=== PATIENT | male | born 1950 | race Caucasian/White ===

== ENCOUNTER → 2017-01-09 | Outpatient (CLI) | payer OTHER, MEDICARE | LOC: BHFA 13:00 | PROVIDERS: ATTEND Internal Medicine Cardiovascular Disease | DX: R00.2 Palpitations (principal); R94.31 Abnormal electrocardiogram [ECG] [EKG]; I49.3 Ventricular premature depolarization; I10 Essential (primary) hypertension; I47.1 Supraventricular tachycardia; R42 Dizziness and giddiness; R06.02 Shortness of breath ==

== ENCOUNTER → 2017-01-23 | Outpatient (CLI) | payer OTHER, MEDICARE | LOC: BHFA 11:30 | PROVIDERS: ATTEND Internal Medicine | DX: R94.31 Abnormal electrocardiogram [ECG] [EKG] (principal); R00.2 Palpitations | CPT/HCPCS: 78452; 93017; 93306; A9500; J2785 ==

== ENCOUNTER → 2017-07-17 | Outpatient (CLI) | payer OTHER, MEDICARE ==
[~2017-07-17] MED LIST: IOPAMIDOL (ISOVUE-300) 100 ML BTL ONE
== END ==
LOC: CIMAGING 11:07
PROVIDERS: ATTEND Family Medicine
DX: R68.84 Jaw pain (principal); I65.23 Occlusion and stenosis of bilateral carotid arteries; Z85.858 Personal history of malignant neoplasm of other endocrine glands
CPT/HCPCS: 70491; Q9967

== ENCOUNTER → 2017-07-22 | Outpatient (CLI) | payer OTHER, MEDICARE | LOC: CIMAGING 10:24 | PROVIDERS: ATTEND Family Medicine | DX: I65.21 Occlusion and stenosis of right carotid artery (principal) | CPT/HCPCS: 93880-PO ==

== ENCOUNTER → 2017-07-30 | Outpatient (CLI) | payer OTHER, MEDICARE ==
[~2017-07-30] MED LIST changes: +IOPAMIDOL (ISOVUE 370) 100 ML BTL IV ONE; -IOPAMIDOL (ISOVUE-300) 100 ML BTL ONE
== END ==
LOC: CIMAGING 09:06
PROVIDERS: ATTEND Family Medicine
DX: I65.21 Occlusion and stenosis of right carotid artery (principal); E04.1 Nontoxic single thyroid nodule; M47.892 Other spondylosis, cervical region
CPT/HCPCS: 70498; Q9967

== ENCOUNTER → 2017-10-15 | Outpatient (CLI) | payer OTHER, MEDICARE | LOC: CIMAGING 16:00 | PROVIDERS: ATTEND Family Medicine | DX: E04.1 Nontoxic single thyroid nodule (principal) | CPT/HCPCS: 76536-PO ==

== ENCOUNTER → 2017-10-22 | Outpatient (CLI) | payer OTHER, MEDICARE ==
[~2017-10-22] MED LIST changes: -IOPAMIDOL (ISOVUE 370) 100 ML BTL IV ONE; +LIDOCAINE 1% 300 MG/30 ML SDV ONE
== END ==
LOC: FIMAGING 12:16
PROVIDERS: ATTEND Family Medicine
PROC: 0G9K3ZZ Drainage of Thyroid Gland, Percutaneous Approach (ICD-10-PCS; principal; 2017-10-22)
DX: E04.1 Nontoxic single thyroid nodule (principal)

== ENCOUNTER → 2017-11-11 | Outpatient (CLI) | payer OTHER, MEDICARE ==
[~2017-11-11] MED LIST changes: +IOPAMIDOL (ISOVUE 370) 100 ML BTL IV ONE; -LIDOCAINE 1% 300 MG/30 ML SDV ONE
== END ==
LOC: CIMAGING 13:23
PROVIDERS: ATTEND Surgery
DX: I65.23 Occlusion and stenosis of bilateral carotid arteries (principal); M47.892 Other spondylosis, cervical region
CPT/HCPCS: 70498; Q9967; 82565-PO

== ENCOUNTER 2017-12-10 06:11 | Inpatient (IN) | payer OTHER, MEDICARE ==
[2017-12-10] MEDS ORDERED: ceFAZolin 2 GM/DEXTROSE 100 ML IV ONE (06:54)
[2017-12-10] MEDS ORDERED: LR 1,000 ML IV ONE (06:57)
[2017-12-10] MEDS ORDERED: LIDOCAINE 1% 2 ML INJ ID PRN (06:57)
--- NOTE | 2017-12-10 07:20 | PDHPUP ---
History & Physical Update H&P update statement: This history and physical update is based on an assessment of the patient which was completed after admission or registration (within 24 hours), but prior to the surgery/procedure. H&P update: H&P reviewed & patient examined, no change in patient's condition since H&P completed
[2017-12-10] MEDS ORDERED: BUPIVACAINE 0.25% 30 ML SDV ONE (07:23)
[2017-12-10] MEDS ORDERED: THROMBIN (BOVINE) 20,000 UNIT SPRAY TP ONE (07:23)
[2017-12-10] MEDS ORDERED: PROTAMINE SULFATE 50 MG/5 ML VIAL IVP ONE (07:23)
--- NOTE | 2017-12-10 07:30 | PDANEPAE ---
ANE History of Present Illness R CEA ANE Past Medical History - Cardiovascular History Hx Hypertension: Yes Hx Arrhythmias: No Hx Chest Pain: No Hx Coronary Artery / Peripheral Vascular Disease: No Hx CHF / Valvular Disease: No Hx Palpitations: No - Pulmonary History Hx COPD: No Hx Asthma/Reactive Airway Disease: No Hx Recent Upper Respiratory Infection: No Hx Oxygen in Use at Home: No Hx Sleep Apnea: No Sleep Apnea Screening Result - Last Documented: Positive - Neurologic History Hx Cerebrovascular Accident: No Hx Seizures: No Hx Dementia: No - Endocrine History Hx Diabetes: No Hypothyroid: No Hyperthyroid: No Obesity: moderate Endocrine History Comment: hx of thyroid nodules - Renal History Hx Renal Disorders: No - Liver History Hx Hepatic Disorders: No - Neurological & Psychiatric Hx Hx Neurological and Psychiatric Disorders: No - Cancer History Hx Cancer: Yes 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 - Congenital Disorder History Hx Congenital Disorders: No - GI History GERD: no Hx Gastrointestinal Disorders: No - Other Health History Other Health History: none - Chronic Pain History Chronic Pain: Yes (arthritis of hands and knees) - Surgical History Prior Surgeries: appendectomy, submandibular gland excision,hernia repair, ANE Review of Systems Review of Systems: - Exercise capacity METS (RN): 4 METS ANE Patient History - Allergies Allergies/Adverse Reactions: No Known Drug Allergies Allergy (Verified 12/04/17 10:19) - Home Medications Home Medications: Aspirin [Aspirin 81mg (*)] 81 mg PO DAILY 12/04/17 [Last Taken 12/05/17] Atorvastatin Calcium [Lipitor 10 mg (*)] 10 mg PO HS 12/04/17 [Last Taken ] Carboxymethylcellulose 1% [Refresh Celluvisc (*)] 1 drop EACHEYE DAILY PRN 12/04 [Last Taken 1 Month Ago ~11/10/17] Hydrochlorothiazide [HCTZ (*)] 25 mg PO DAILY 12/04/17 [Last Taken 12/09/17] Ibuprofen [Motrin (*)] 600 mg PO BID 12/04/17 [Last Taken 12/05/17] Lisinopril 30 mg PO DAILY 12/04/17 [Last Taken 12/09/17] Multivitamins [Multivitamin (*)] 1 each PO HS 12/04/17 [Last Taken 12/09/17] [place]-3 Fatty Acids [Fish Oil 1000 mg (*)] 1,000 mg PO BID 12/04/17 [Last Taken 12/09/17] - NPO status NPO Since - Liquids (Date): 12/09/17 NPO Since - Liquids (Time): 22:00 NPO Since - Solids (Date): 12/09/17 NPO Since - Solids (Time): 21:00 - Anes Hx Anes Hx: post operative nausea - Smoking Hx Smoking Status: Former smoker Marijuana use: No - Alcohol Use Alcohol Use: Other (1 beer/week) - Family Anes Hx Family Anes Hx: none Family Hx Anesthesia Complications: none ANE Labs/Vital Signs - Vital Signs Blood Pressure: 128/81 Heart Rate: 59 Respiratory Rate: 16 O2 Sat (%): 91 Height: 182.88 cm Weight: 117.934 kg ANE Physical Exam - Airway Neck exam: FROM Mallampati Score: Class 2 Mouth exam: normal dental/mouth exam - Pulmonary Pulmonary: clear to auscultation - Cardiovascular Cardiovascular: regular rate and rhythym - ASA Status ASA Status: III ANE Anesthesia Plan Anesthesia Plan: general endotracheal anesthesia Lines/Monitors: arterial line
[2017-12-10] MEDS ORDERED: MIDAZOLAM 2 MG/2 ML VIAL ONE (07:33)
[2017-12-10] MEDS ORDERED: DEXAMETHASONE 4 MG/ML VIAL ONE (07:39)
[2017-12-10] MEDS ORDERED: PROPOFOL 200 MG/20 ML VIAL ONE (07:39)
[2017-12-10] MEDS ORDERED: ROCURONIUM 50 MG/5 ML VIAL ONE (07:39)
[2017-12-10] MEDS ORDERED: REMIFENTANIL HCL 1 MG VIAL ONE (07:40)
[2017-12-10] MEDS ORDERED: PHENYLEPHRINE 10 MG/ML SDV ONE (07:44)
[2017-12-10] MEDS ORDERED: HEPARIN 10,000 UNIT/10 ML MDV (1,000 UNIT/ML) ONE (08:05)
[2017-12-10] MEDS ORDERED: ONDANSETRON 4 MG/2 ML VIAL ONE (09:35)
[2017-12-10] MEDS ORDERED: NEOSTIGMINE METHYLSULFATE 3 MG/3 ML SYR ONE (09:35)
[2017-12-10] MEDS ORDERED: GLYCOPYRROLATE 0.2 MG/1 ML VIAL ONE ×2 (09:35)
[2017-12-10] MEDS ORDERED: fentaNYL 100 MCG/2 ML INJ IVP PRN (09:38)
[2017-12-10] MEDS ORDERED: ENALAPRILAT DIHYDRATE 1.25 MG/ML VIAL IVP PRN ×2 (09:38→09:57)
[2017-12-10] MEDS ORDERED: ONDANSETRON 4 MG/2 ML VIAL IVP PRN ×2 (09:38→09:56)
[2017-12-10] MEDS ORDERED: NALOXONE HCL 0.4 MG/ML INJ IVP PRN (09:38)
[2017-12-10] MEDS ORDERED: MIDAZOLAM 2 MG/2 ML VIAL IVP ONE (09:46)
[2017-12-10] MEDS ORDERED: OXYCODONE/APAP 5/325 TAB PO PRN (09:56)
[2017-12-10] MEDS ORDERED: HYDROmorphONE/DILAUDID 1 MG/ML INJ IVP PRN (09:56)
[2017-12-10] MEDS ORDERED: CARBOXYMETHYLCELLULOSE 1% 0.4 ML DROPERETTE EACHEYE PRN (09:58)
[2017-12-10] MEDS ORDERED: fentaNYL 100 MCG/2 ML INJ ONE (10:32)
[2017-12-10] MEDS ORDERED: ENALAPRILAT DIHYDRATE 1.25 MG/ML VIAL ONE (10:47)
--- NOTE | 2017-12-10 12:29 | POSTOPPROG ---
Post Op Note Date of Operation: 12/10/17 Surgeon: Capo Pelaez Health And Safety Trainer: Eula Bunn Anesthesiologist: Cristopher Dutta Anesthesia: GET(General Endotracheal) Pre-op Diagnosis: critical R carotid stenosis Post-op Diagnosis: same Indication: 67 Y M foud to have critical R carotid stenosis on w/u to eval jaw pain. Procedure: R CEA c EEG monitoring and patch closure Findings: high ulcerated plaque, no EEG changes. Inf/Abcess present in the surg proc area at time of surgery?: No EBL: 50-100 Complications: none Specimen(s): plaque to pathology
--- NOTE | 2017-12-10 13:02 | POSTANESTH ---
Post Anesthetic Evaluation Cardiovascular Status: Similar to Pre-Op Cond Respiratory Status: Similar to Pre-op Cond. Level of Consciousness/Mental Status: Can Participate in Eval Pain Control: Adequate, Prn Tx Ordered Nausea/Vomiting Control: Adequate, Prn Tx Ordered Complications Possibly Related to Anesthesia: None Noted
--- NOTE | 2017-12-10 15:32 | PDMN ---
Medical Necessity Medical necessity: IP surgery per [facility] cpt 30307 R CEA
[2017-12-10] MEDS ORDERED: MULTIVITAMINS 1 EACH TAB PO SCH (21:00)
[2017-12-10] MEDS ORDERED: ATORVASTATIN CALCIUM 10 MG TAB PO SCH (21:00)
[2017-12-10] MEDS: DOCUSATE SODIUM 100 MG CAP PO SCH (21:23)
[2017-12-10] MEDS: OMEGA-3 FATTY ACIDS 1,000 MG CAP PO SCH (21:23)
[2017-12-11] MEDS: DOCUSATE SODIUM 100 MG CAP PO SCH (08:28)
[2017-12-11] MEDS: OMEGA-3 FATTY ACIDS 1,000 MG CAP PO SCH (08:28)
[2017-12-11] MEDS ORDERED: ASPIRIN 81 MG CHEWABLE TAB PO SCH (09:00)
[2017-12-11] MEDS ORDERED: LISINOPRIL 10 MG TAB PO SCH (09:00)
[2017-12-11] MEDS ORDERED: HYDROCHLOROTHIAZIDE 25 MG TAB PO SCH (09:00)
[2017-12-11 11:16] VITALS: BP 119/49
--- NOTE | 2017-12-11 11:43 | SOAPPROG ---
[facility]ARDO Progress Note Assessment/Plan: Assessment: STATUS POST RIGHT CAROTID ENDARTERECTOMY DOING WELL/ NEURO INTACT/ WOUND OKAY/ SWALLOWING WELL/NO COMPLAINTS IMPRESSION STABLE Plan: HOME TODAY 12/11/17 11:41 Objective: Vital Signs Temp Pulse Resp BP Pulse Ox 36.3 C 64 13 119/49 L 97 12/11/17 08:00 12/11/17 11:00 12/11/17 11:00 12/11/17 11:00 12/11/17 11:00 Laboratory Results 12/11/17 05:10 12/11/17 05:10 12/10/17 12/11/17 12/12/17 05:59 05:59 05:59 Intake Total 1650 Output Total 10 Balance 1640 ICD10 Worksheet Patient Problems: Problems Problem Status Onset Carotid stenosis, right Acute - ICD10 Problem Qualifiers (1) Carotid stenosis, right
[2017-12-12] MEDS ORDERED: ENOXAPARIN 40 MG/0.4 ML SYR SC SCH (09:00)
--- NOTE | 2017-12-13 02:13 | GOP ---
[f rep st] OPERATIVE REPORT DATE OF OPERATION: 12/10/2017 SURGEON: Capo Pelaez MD RESEARCH METHODS INSTRUCTOR: Eula Bunn, PAC ANESTHESIA: Dr. Dutta. PREOPERATIVE DIAGNOSIS: Critical right carotid stenosis and transient ischemic attack. POSTOPERATIVE DIAGNOSIS: Critical right carotid stenosis and transient ischemic attack. PROCEDURE PERFORMED: Right carotid endarterectomy with EEG monitoring. FINDINGS: The patient was found to have a tight internal carotid stenosis, which extended well up th e internal carotid artery with ulcerated soft and calcified plaque. He had no EEG changes and he awo ke normally moving all extremities and neurologically intact. DESCRIPTION OF PROCEDURE: Patient was taken to the operating room where he received a satisfactory g eneral endotracheal anesthesia. He was placed in the supine position, prepped and draped in the usua l sterile fashion. He had been systemically heparinized prior to induction of anesthesia. A long in cision was made along the anterior sternocleidomastoid muscle. Dissection extended down through the platysma and subcutaneous tissue and then through the superficial fascia. The carotid arterial tree was exposed and dissected free. The common facial vein was multiply ligated and divided, and the com mon carotid, external carotid, internal carotid vessels were all dissected free and controlled with v essel loops. Dissection of the internal carotid extended well up behind the jaw requiring some signi ficant retraction before we could get above the calcified plaque. After adequate control and exposur e were achieved, the patient was given additional heparin, and after adequate circulation time, the v essels were occluded with the vessel loops. Arteriotomy was made in the common carotid artery and ex tended up through the calcified tight plaque into the internal carotid artery. There was good backfl ow from the internal carotid and an expeditious endarterectomy was then done removing the plaque with a good feathered end in the internal carotid. He maintained good EEG tracings and excellent backflo w through the internal carotid. A Dacron Hemashield patch was placed over the artery. All debris nicholson d been flushed and removed and all vessels were flushed. A Dacron patch was sutured in place with a running Hemashield 7 suture closing the arteriotomy defect. Flow was first established through the e xternal carotid, and then back through the internal carotid. There were no changes. He tolerated th e procedure well. Suture line appeared to be hemostatic. Heparin was reversed with protamine. When hemostasis was fully obtained, the wound was closed with 3-0 Vicryl for the cervical fascia, running 3-0 Vicryl for the platysma and subcutaneous tissue, and a 4-0 Monocryl subcuticular stitch for the skin. All layers were infiltrated with 0.5% Marcaine. He tolerated the procedure well, taken to rec overy room in good condition. /[id number]/MODL
--- NOTE | 2017-12-18 08:32 | GDS ---
[f rep st] DISCHARGE SUMMARY DISCHARGE DIAGNOSIS: Critical right carotid stenosis. OTHER DIAGNOSES: Include: 1. 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 2. Hyperlipidemia. 3. Hypertension. 4. Osteoarthritis. 5. History of appendectomy. 6. Hernia repair. 7. Tonsillectomy. PROCEDURES: Right carotid endarterectomy with EEG monitoring and patch closure. INTRAOPERATIVE FINDINGS: Patient was found to have a tight internal carotid stenosis, which extended well up into the internal carotid artery with ulcerated soft and calcified plaque. He awoke moving all extremities and neurologically intact. HOSPITAL COURSE: The patient is a 67-year-old male who was found to have a high right carotid stenos is on a workup to evaluate jaw pain, which had since resolved. He underwent carotid endarterectomy w stephanie Pelaez. The procedure was uncomplicated and he tolerated it well. He was cared for in the ICU. His blood pressure remained stable and he was neurologically intact. DISCHARGE INSTRUCTIONS: Patient was discharged to home in stable condition on postoperative day 1 plans for outpatient followup. /[id number]/MODL
== END 2017-12-11 12:30 | disposition home or self-care (01) | DRG 39 ==
LOC: F3E 06:11 → F2N 07:11
PROVIDERS: ADMIT Surgery; ATTEND Surgery
DX: I65.21 Occlusion and stenosis of right carotid artery (principal); I10 Essential (primary) hypertension; Z85.818 Personal history of malignant neoplasm of other sites of lip, oral cavity, and pharynx
CPT/HCPCS: C1768; J0690; J1100; J1644; J2250; J2370; J2405; J2704; J2710; J2720; J3010

== ENCOUNTER → 2018-06-18 | Outpatient (CLI) | payer OTHER, MEDICARE | LOC: CIMAGING 11:17 | PROVIDERS: ATTEND Family Medicine | DX: R91.8 Other nonspecific abnormal finding of lung field (principal); I51.7 Cardiomegaly | CPT/HCPCS: 71046-PO ==

== ENCOUNTER → 2018-07-08 | Outpatient (CLI) | payer OTHER, MEDICARE | LOC: BHFA 15:15 | PROVIDERS: ATTEND Internal Medicine Interventional Cardiology | DX: I50.9 Heart failure, unspecified (principal) ==